=== PATIENT | male | born 1980 | race Hispanic/Latino ===

== ENCOUNTER 2018-12-14 07:45 | Outpatient (CLI) | payer BC ==
--- NOTE | 2018-12-14 09:48 | MRI ---
MRI OF THE RIGHT KNEE WITHOUT CONTRAST: INDICATION: History of right knee pain. History of PCL rupture and lateral meniscus tear; worsening knee pain si nce 2011. COMPARISON: MRI of the right knee dated 07/08/2012. FINDINGS: Again seen is acomplete PCL disruption. The MCL has demonstrated interval healing. The ACL is intac t. The LCLC and extensor mechanism is intact. There is a new full-thickness articular cartilage fissure with associated subchondral cyst-like abnor mality measuring 5 mm on image 9 of series 2 of the median patellar ridge. There is mild synovitis within the knee. There is mild synovitis along the popliteal hiatus. The radially oriented oblique tear involving the posterior body, posterior junction, and posterior ho rn of the lateral meniscus with a displaced meniscal flap is not appreciably changed. There is some internal degenerative signal now present within the displaced lateral meniscal flap, on image 9 of se tutu 9. This displaced flap measures approximately 1 cm greatest mediolateral dimension. The medial meniscus is intact. Articular cartilage of the lateral femorotibial compartment appears relatively well maintained. There is a 7.5 mm intraarticular body seen within the anterior knee joint adjacent to the Hoffa's fat pad near the ACL foot bed. IMPRESSION: 1. Chronic complete posterior cruciate ligament rupture. 2. Stable displaced radial flap tear involving the lateral meniscus. 3. New full-thickness articular cartilage fissure with associated delamination and subchondral cyst formation involving the median patellar ridge measuring 5 mm. 4. New intraarticular body measuring 7 mm within the anterior aspect of the knee joint adjacent to t he anterior cruciate ligament foot bed. POS: [facility]
== END 2018-12-14 07:46 | disposition home or self-care (01) ==
LOC: BICMRI 07:45
PROVIDERS: ATTEND Orthopaedic Surgery
DX: S83.522D Sprain of posterior cruciate ligament of left knee, subsequent encounter (principal); S83.521D Sprain of posterior cruciate ligament of right knee, subsequent encounter; S83.281D Other tear of lateral meniscus, current injury, right knee, subsequent encounter

== ENCOUNTER 2019-01-07 00:11 | Outpatient (CLI) | payer BC ==
[2019-01-07 17:37] LABS: #Basophils 0.1 thou/uL (0.0-0.2); #Eosinphils 0.1 thou/uL (0.0-0.7); #Lymphocytes 2.8 thou/uL (1.20-3.40); #Monocytes 0.7 thou/uL (0.11-0.59); #Neutrophils 4.5 thou/uL (1.40-6.50); %Basophils 0.8 % (0.0-1.0); %Eosinophils 1.8 % (0.0-10.0); %Lymphocytes 34.4 % (21.0-51.0); %Monocytes 8.6 % (0.0-10.0); %Neutrophils 54.5 % (42.0-75.0); Hemoglobin 14.7 g/dL (14.0-18.0); Mean Corpuscular HGB CONC 33.7 g/dL (32.0-36.0); Mean Corpuscular Hemoglobin 31.1 pg (27.0-31.0); Mean Corpuscular Volume 92.2 fL (78.0-98.0); Mean Platelet Volume 9.9 fL (7.4-10.4); Platelet Count 213 thou/uL (130-400); Red Blood Cell (RBC) Count 4.73 mill/uL (4.70-6.10); White Blood Cell (WBC) Count 8.2 thou/uL (4.8-10.8)
== END 2019-01-07 00:12 | disposition home or self-care (01) ==
LOC: LABBT 00:11
PROVIDERS: ATTEND Orthopaedic Surgery
DX: Z01.818 Encounter for other preprocedural examination (principal); S83.206A Unspecified tear of unspecified meniscus, current injury, right knee, initial encounter
CPT/HCPCS: 85025; 93005; 93010

== ENCOUNTER 2019-01-08 05:59 | Day surgery (SDC) | payer BC ==
[2019-01-07 17:21] VITALS: BMI 32.6
[2019-01-08] MEDS ORDERED: PROPOFOL 20 ML ONE (06:22)
[2019-01-08] MEDS ORDERED: Midazolam HCl 2 mg/2 ml Vial ONE ×2 (07:20→07:41)
[2019-01-08] MEDS ORDERED: Ropivacaine 0.2% HCl/PF 0 ML ONE (07:20)
[2019-01-08] MEDS ORDERED: Fentanyl 100 MCG/2 ML VIAL ONE ×2 (07:20→07:42)
[2019-01-08] MEDS ORDERED: Bupivacaine HCl 0.5%/Epinephrine 1:200,000/PF 30 ml Vial ONE (10:09)
[2019-01-08] MEDS ORDERED: Lidocaine 2% w/Epinephrine 1:200K 20 ML VIAL ONE (10:09)
[2019-01-08] MEDS ORDERED: PROPOFOL 200 MG/20 ML VIAL ONE (10:35)
[2019-01-08] MEDS ORDERED: Lidocaine 1% PF 5 ML VIAL ONE (10:35)
[2019-01-08] MEDS ORDERED: Ketorolac Tromethamine 30 MG/ML VIAL ONE (10:35)
[2019-01-08] MEDS ORDERED: HYDROcodone/Acetaminophen 5/325 mg Tablet ONE (10:39)
--- NOTE | 2019-01-08 12:28 | OP ---
DATE OF PROCEDURE: 01/08/2019 PREOPERATIVE DIAGNOSES: Right knee complex displaced chronic lateral meniscus tear and a loose body, right knee. POSTOPERATIVE DIAGNOSES: Right knee complex displaced chronic lateral meniscus tear and a loose body, right knee. PROCEDURES PERFORMED: 1. Right knee arthroscopy with partial lateral meniscectomy. 2. Removal of loose body greater than 1 cm. [employer]: None. BLOOD LOSS: Minimal. COMPLICATIONS: None. ANESTHESIA: He had general anesthetic as well as a local knee block. INDICATION FOR PROCEDURE: This is a 38-year-old male, injured his right knee years ago and at that time, was found to have a large complex meniscus tear but he never had surgery on it. At this time, he is having chronic pain, effusions, and catching. He wishes to have the knee taken care of. He also has a chronic PCL injury, but does not have complaints of instability. DESCRIPTION OF PROCEDURE: After verbal consent forms were explained and signed , he was taken to the operative room and at this time was given general anesthetic. Tourniquet was placed in the right thigh, and leg was placed in the arthroscopic leg palomares. The limb was then prepped and draped in standard surgical fashion. Limb was exsanguinated and tourniquet was taken up to 300 mmHg. Inferolateral portal was established. Scope was placed into the knee joint. A needle localization technique was then used to make a medial working portal. Diagnostic arthroscopy commenced in the notch. The loose body, which was actually a portion of the anterior horn of the lateral meniscus, was found to be in the notch. This 1.8cm loose body was removed with a grasper. The ACL was found to be intact. The PCL was torn and the majority of the medial femoral condyle notch area was empty. The medial compartment was probed and found to be in very good condition other than some mild arthritic change in the medial tibial plateau. The lateral compartment was a different story. The central portion of the tibial plateau again had some grade 2 changes. The femur had some mild grade 2 changes, but otherwise was in good condition. There was a very complex tear of the posterior horn of lateral meniscus with two massive flaps, one going posterior around in the popliteal hiatus region and the other one going underneath the meniscus. The flaps were pulled out into the joint and were taken down to a stable base using meniscal biter and shaver. Remaining meniscal tissue was intact and left alone. Gutters were swept through. There was a significant amount of synovitis in both of these and therefore, the shaver was used to remove the excess synovium. We then went to the suprapatellar pouch. The patellofemoral joint overall was in good condition. There was some small area in the superior facet of the patella, which was worn and there was some significant synovitis, which again was removed with the shaver. At this time, the knee was drained. The portals were closed with simple nylon stitches, and a bulky sterile dressing was applied. Tourniquet was let down. Toes pinked up nicely. The patient was awakened and taken to recovery room in stable condition. All counts were correct at the end of the case. He did receive preoperative IV antibiotics. Job ID: [id number] [facility]
== END 2019-01-08 11:15 | disposition home or self-care (01) ==
LOC: SDC 05:59
PROVIDERS: ATTEND Orthopaedic Surgery
PROC: 0SCC4ZZ Extirpation of Matter from Right Knee Joint, Percutaneous Endoscopic Approach (ICD-10-PCS; principal; 2019-01-08)
PROC: 0SBC4ZZ Excision of Right Knee Joint, Percutaneous Endoscopic Approach (ICD-10-PCS; principal; 2019-01-08)
DX: S83.271A Complex tear of lateral meniscus, current injury, right knee, initial encounter (principal); M65.88 Other synovitis and tenosynovitis, other site; S83.521A Sprain of posterior cruciate ligament of right knee, initial encounter
CPT/HCPCS: J2250; J2704; J2795; J3010